=== PATIENT | female | born 1980 | race Hispanic/Latino ===

== ENCOUNTER 2019-09-17 00:49 | Emergency (ER) | payer SELFPAY ==
[2019-09-17] MEDS ORDERED: Ketorolac Tromethamine 60 MG/2 ML VIAL ONE (01:07)
[2019-09-17 01:37] LABS: #Basophils 0.1 thou/uL (0.0-0.2); #Eosinphils 0.2 thou/uL (0.0-0.7); #Lymphocytes 4.4 thou/uL (1.20-3.40); #Monocytes 0.8 thou/uL (0.11-0.59); #Neutrophils 5.9 thou/uL (1.40-6.50); %Eosinophils 1.4 % (0.0-10.0); %Lymphocytes 38.8 % (21.0-51.0); %Monocytes 7.1 % (0.0-10.0); %Neutrophils 51.7 % (42.0-75.0); Hemoglobin 12.1 g/dL (12.0-16.0); Mean Corpuscular HGB CONC 31.2 g/dL (32.0-36.0); Mean Corpuscular Volume 86.4 fL (78.0-98.0); Mean Platelet Volume 7.7 fL (7.4-10.4); Platelet Count 341 thou/uL (130-400); RBC Distribution Width 12.7 % (11.5-14.5); Red Blood Cell (RBC) Count 4.47 mill/uL (4.20-5.40); White Blood Cell (WBC) Count 11.4 thou/uL (4.8-10.8)
[2019-09-17 01:56] LABS: BHCG - Serum Negative (NEGATIVE); Pregs Control Background? CLEAR/WHITE (CLR/WHITE); Pregs Control Bar Appear? YES (CONTROL BAR)
[2019-09-17 02:06] LABS: Anion Gap 15 mmol/L (10-20); BUN (Urea Nitrogen) 17 mg/dL (7.0-18.7); Calc. Creatinine Clearance 0 mL/min (70-130); Calcium 9.5 mg/dL (7.8-10.44); Carbon Dioxide 20 mmol/L (22-29); Chloride 108 mmol/L (98-107); Estimated GFR-MDRD 69; Glucose 108 mg/dL (70-105); Sodium 139 mmol/L (136-145)
--- NOTE | 2019-09-17 08:08 | CT ---
PRELIMINARY REPORT/[facility]/EMERGENCY AFTER HOURS PROCEDURE EXAM: CT Chest with Intravenous Contrast. CT Abdomen and Pelvis with Intravenous Contrast CLINICAL HISTORY: RT UPPER BACK PAIN TECHNIQUE: Axial computed tomography images of the chest, abdomen and pelvis with intravenous contras t. CONTRAST: With; ISOVUE 370 100 ML COMPARISON: None provided. FINDINGS: CHEST: LUNGS: No pulmonary mass. No focal airspace consolidation. PLEURAL SPACES: No pleural effusion. No pneumothorax. HEART AND MEDIASTINUM: Mild cardiomegaly. No significant pericardial effusion. LYMPH NODES: No lymphadenopathy. ABDOMEN AND PELVIS: LIVER: Unremarkable. No focal lesions. GALLBLADDER AND BILE DUCTS: Unremarkable. No calcified stone. No ductal dilation. PANCREAS: Unremarkable. SPLEEN: Unremarkable. ADRENAL GLANDS: Unremarkable. KIDNEYS, URETERS, AND BLADDER: Unremarkable. No hydronephrosis or nephrolithiasis. No ureteral or mercedes dder calculi. STOMACH AND BOWEL: Moderate hiatal hernia. No obstruction. No wall thickening. No CT evidence of col itis or acute diverticulitis. Colonic diverticulosis. APPENDIX: No CT evidence for appendicitis. PERITONEUM: No free fluid. No free air. LYMPH NODES: No lymphadenopathy. REPRODUCTIVE: Unremarkable as visualized. VASCULATURE: No aortic aneurysm. BONES AND SOFT TISSUES: No acute osseous abnormality. The soft tissues are unremarkable. IMPRESSION: No acute intra-thoracic, intra-abdominal, or intra-pelvic abnormality. Mild cardiomegaly. Scattered colonic diverticulosis with no evidence of diverticulitis. Moderate hiatal hernia. ELECTRONICALLY SIGNED BY: Shilo Lizama MD Sep 17, 2019 2:54:51 AM CDT FINAL REPORT CTA AORTIC DISSECTION PROTOCOL WITH IV CONTRAST AND 3D REFORMMATED IMAGING: I agree with the preliminary report provided. No acute aortic stenosis, occlusion, or aneurysmal for mation is demonstrated. No definite central pulmonary embolus is evident. No acute cardiopulmonary abnormality is noted. There is a moderate-size hiatal hernia. Heart size is upper limits of normal. The visualized abdomen appears within normal limits. A few scattered colonic diverticula are prese nt. No enlarged lymph nodes are evident. POS: BH
[2019-09-17] MEDS ORDERED: Iopamidol 370 76% 125 ML VIAL FS ONE (09:37)
[2019-09-17] MEDS ORDERED: Sodium Chloride 0.9% 100 ML BAG ONE (14:03)
== END 2019-09-17 03:05 | disposition home or self-care (01) ==
LOC: MADERS 00:49
DX: S29.012A Strain of muscle and tendon of back wall of thorax, initial encounter (principal); X58.XXXA Exposure to other specified factors, initial encounter
CPT/HCPCS: 71275; 72191; 74175; 80048; 84703; 85025; 96372; J1885; J3490; Q9967